=== PATIENT | female | born 1995 | race American Indian/Alaskan Native ===

== ENCOUNTER 2016-05-15 17:01 | Outpatient (CLI) | payer MEDICAID ==
[2016-05-15] MEDS ORDERED: LACTATED RINGERS 500 ML IV ONE (19:00)
[2016-05-15 19:57] LABS: Bilirubin,Urine NEG (Negative); Blood,Urine NEG (Negative); Ketones,Urine NEG (Negative); Leukocyte Esterase,Urine TR (Negative); Mucus,Urine FEW /HPF; Nitrite,Urine NEG (Negative); Protein,Urine <15 mg/dL mg/dL (Negative); Urobilinogen,Urine < 2.0 mg/dL (<2.0)
[2016-05-15 20:06] VITALS: BP 124/75
== END 2016-05-15 20:30 | disposition home or self-care (01) ==
LOC: TRG 17:01
PROVIDERS: ATTEND Obstetrics & Gynecology
DX: O47.1 False labor at or after 37 completed weeks of gestation (principal); Z3A.38 38 weeks gestation of pregnancy
CPT/HCPCS: 81001

== ENCOUNTER 2016-05-23 10:17 | Outpatient (CLI) | payer MEDICAID ==
[2016-05-23 11:20] LABS: Hematocrit 36.9 % (30.3-42.9); Hemoglobin 12.5 gm/dl (10.1-14.3); Mean Corpuscular HGB Conc 34 % (30-34); Mean Corpuscular Hemoglobin 27 pg (28-32); Mean Corpuscular Volume 81 fl (79-97); Platelet Count 237 K/mm3 (140-440); Red Blood Count 4.55 M/mm3 (3.65-5.03); Red Cell Distribution Width 14.6 % (13.2-15.2); White Blood Count 6.9 K/mm3 (4.5-11.0)
[2016-05-23 11:36] LABS: Alanine Aminotransferase 16 units/L (7-56); Lactate Dehydrogenase 267 units/L (91-180); Uric Acid 6.5 mg/dL (3.5-7.6)
[2016-05-23 11:45] LABS: Bacteria,Urine 1+ /HPF (Negative); Bilirubin,Urine NEG (Negative); Blood,Urine NEG (Negative); Ketones,Urine NEG (Negative); Leukocyte Esterase,Urine TR (Negative); Nitrite,Urine NEG (Negative); Protein,Urine <15 mg/dL mg/dL (Negative); Urobilinogen,Urine < 2.0 mg/dL (<2.0)
[2016-05-23 12:02] VITALS: BP 110/62
== END 2016-05-23 12:20 | disposition home or self-care (01) ==
LOC: TRG 10:17
PROVIDERS: ATTEND Obstetrics & Gynecology
DX: O26.893 Other specified pregnancy related conditions, third trimester (principal); R03.0 Elevated blood-pressure reading, without diagnosis of hypertension; Z3A.38 38 weeks gestation of pregnancy
CPT/HCPCS: 36415; 59025; 81001; 82565; 83615; 84450; 84460; 84550; 85027

== ENCOUNTER 2016-05-26 02:02 | Inpatient (IN) | payer MEDICAID ==
[2016-05-26] MEDS ORDERED: NARCAN 0.4 MG/1 ML IV PRN (03:41)
[2016-05-26] MEDS ORDERED: STADOL IV PRN (03:41)
[2016-05-26] MEDS ORDERED: SUBLIMAZE IV PRN (03:41)
[2016-05-26] MEDS ORDERED: BRETHINE SUB-Q PRN (03:41)
[2016-05-26] MEDS ORDERED: BRETHINE IVP PRN (03:41)
[2016-05-26] MEDS ORDERED: ZOFRAN IV PRN ×2 (03:41→09:06)
[2016-05-26] MEDS ORDERED: ePHEDrine SULFATE IV PRN (03:41)
[2016-05-26] MEDS ORDERED: POLYCILLIN/NS 2 GM/100 ML 100 ML IV ONE (03:41)
[2016-05-26] MEDS ORDERED: XYLOCAINE 2% INFILTRATI ONE ×2 (03:41→06:18)
[2016-05-26] MEDS ORDERED: MINERAL OIL PO PRN (03:41)
[2016-05-26] MEDS ORDERED: NUBAIN IV PRN (03:41)
[2016-05-26] MEDS ORDERED: PITOCin/NS 30 UNIT/500ML 500 ML IV SCH (04:00)
[2016-05-26] MEDS ORDERED: LACTATED RINGERS 1,000 ML IV SCH (04:00)
[2016-05-26] MEDS ORDERED: PITOCin/NS 20 UNIT/1000ML DRIP 1,000 ML IV SCH ×2 (04:00→09:06)
[2016-05-26 04:09] LABS: Hematocrit 35.1 % (30.3-42.9); Hemoglobin 12.2 gm/dl (10.1-14.3); Mean Corpuscular HGB Conc 35 % (30-34); Mean Corpuscular Hemoglobin 28 pg (28-32); Mean Corpuscular Volume 80 fl (79-97); Platelet Count 225 K/mm3 (140-440); Red Blood Count 4.38 M/mm3 (3.65-5.03); Red Cell Distribution Width 14.8 % (13.2-15.2); White Blood Count 11.9 K/mm3 (4.5-11.0)
--- NOTE | 2016-05-26 05:36 | History and Physical Report ---
History of Present Illness Date of examination: 05/26/16 Date of admission: 05/26/16 03:34 Chief complaint: contractions History of present illness: Pt is a 20 year old -[place] female primigravida FREDRICK 06/05/16 at 38w4d who presents with regular contractions and advanced cervical dilation after ambulating. She also experienced rupture of membranes while in triage with thick meconium. She denies vaginal bleeding. She has had care at [facility] since 27 wks complicated by late entry to care, chlamydia treated with negative test of cure. Gonorrhea listed as "equivocal" on vaginal cultures. Pt is GBS negative. Past History Past Medical History: no pertinent history Past Surgical History: no surgical history EVENT AV OPERATOR History: chlamydia (treated with negative test of cure ), gonorrhea ( equivocal ) Family/Genetic History: none Social history: no significant social history - Obstetrical History Expected Date of Delivery: 06/05/16 Actual Gestation: 38 Week(s) 4 Day(s) : 1 Medications and Allergies Allergies Allergy/AdvReac Type Severity Reaction Status Date / Time No Known Allergies Allergy Verified 05/23/16 10:25 Home Medications Medication Instructions Recorded Confirmed Last Taken Type No Known Home Medications [No 05/23/16 05/23/16 Unknown History Reported Home Medications] Active Meds: Active Medications Butorphanol Tartrate (Stadol) 2 mg IV Q2H PRN PRN Reason: Pain , Severe (7-10) Last Admin: 05/26/16 04:19 Dose: 2 mg Fentanyl (Sublimaze) 100 mcg IV Q2H PRN PRN Reason: Labor Pain Ampicillin Sodium (Polycillin/Ns 1 Gm/50 Ml) 50 mls @ 100 mls/hr IV Q4HR ROSALIA PRN Reason: Protocol Lactated Ringer's (Lactated Ringers) 1,000 mls @ 125 mls/hr IV DIRECT ROSALIA Oxytocin/Sodium Chloride (Pitocin/Ns 20 Unit/1000ml Drip) 1,000 mls @ 125 mls/ hr IV DIRECT ROSALIA Oxytocin/Sodium Chloride (Pitocin/Ns 30 Unit/500ml) 500 mls @ 4 mls/hr IV TITR ROSALIA PRN Reason: Protocol Mineral Oil (Mineral Oil) 30 ml PO QHS PRN PRN Reason: Constipation Nalbuphine HCl (Nubain) 10 mg IV Q2H PRN PRN Reason: Pain, Moderate (4-6) Naloxone HCl (Narcan 0.4 Mg/1 Ml) 0.1 mg IV Q2MIN PRN PRN Reason: Res Rate </= 8 or 02 SAT < 92% Ondansetron HCl (Zofran) 4 mg IV Q8H PRN PRN Reason: Nausea And Vomiting Review of Systems All systems: negative - Vital Signs Vital signs: Vital Signs Pulse Pulse Ox 104 H 97 05/26/16 02:19 05/26/16 02:19 Temp Pulse Resp BP Pulse Ox 97.4 F L 84 18 138/84 100 05/26/16 04:15 05/26/16 05:15 05/26/16 04:15 05/26/16 05:15 05/26/16 05:13 - Physical Exam Breasts: Positive: deferred Cardiovascular: Regular rate Lungs: Positive: Clear to auscultation Abdomen: Positive: soft (gravid, obese ) Genitourinary (Female): Positive: normal external genitalia Uterus: Positive: enlarged (enlarged ) Extremities: Positive: edema - Obstetrical FHR: category 2 Uterine Contraction Monitor Mode: External Cervical Dilatation: 10 Cervical Effacement Percentage: 100 (meconium ) station: +1 Uterine Contraction Pattern: Regular (q 4-5 minutes) Uterine Tone Measurement Phase: Resting Uterine Contraction Intensity: Strong/Firm Results Result Diagrams: 05/26/16 03:50 Abnormal lab results 05/26/16 Range/Units 03:50 WBC 11.9 H (4.5-11.0) K/mm3 MCHC 35 H (30-34) % All other labs normal. Assessment and Plan A: IUP at 38w4d Second Stage labor SROM- meconium GBS negative P: Admit to labor and delivery. Routine intrapartum care. Closely monitor maternal and status.
[2016-05-26] MEDS ORDERED: METHERGINE IM ONE ×2 (06:09→06:50)
--- NOTE | 2016-05-26 06:50 | Procedure Note ---
OB Delivery Note - Delivery Date of Delivery: 05/26/16 Surgeon: TIM FREGOSO Estimated blood loss: other (600 mL) - Vaginal Delivery presentation: vertex Delivery position: OA Intrapartum events: meconium, decreased FHT variability, mult.variable deceleratio, hemorrhage Delivery induction: none Delivery augmentation: pitocin Delivery monitor: external FHT, external uterine Route of delivery: Delivery placenta: spontaneous Delivery cord: nuchal cord, 3 umbilical vessels Episiotomy: none Delivery laceration: 1st degree (perineal ), other (left labial laceration ) Delivery repair: vicryl Anesthesia: local, intravenous Delivery comments: Pt progressed to complete/complete/+2 and pushed to deliver a viable male via over intact eperineum under IV anesthesia. Head delivered in SHERYL presentation. Loose nuchal cord x 1 was reduced, quickly followed by shoulders and body. Cord immediately clamped and cut and handed to NICU staff in attendance for meconium. Cord blood collected. Placenta delivered spontaneously (3VC, intact). Uterus noted to be boggy and IV not flushing well. Pitocin 10 mU IM and Methergine 0.2 mg IM administered along with bimanual massage to improve uterine tone. Vagina and perinuem explored. Left labial laceration and first degree perineal laceration repaired with 3-0 Vicryl in a running fashion. EBL 600 mL. - A at 1 minute: 8 at 5 minutes: 9 Infant Gender: Male (3583g (7lb 14 oz))
[2016-05-26] MEDS ORDERED: POLYCILLIN/NS 1 GM/50 ML 50 ML IV SCH (07:43)
[2016-05-26] MEDS ORDERED: DERMOPLAST TP PRN (09:06)
[2016-05-26] MEDS ORDERED: BENADRYL PO PRN (09:06)
[2016-05-26] MEDS ORDERED: NORCO 5/325 PO PRN (09:06)
[2016-05-26] MEDS ORDERED: TYLENOL PO PRN (09:06)
[2016-05-26] MEDS ORDERED: SODIUM CHLORIDE FLUSH SYRINGE 10 ML IV NR (09:06)
[2016-05-26] MEDS ORDERED: PHENERGAN PO PRN (09:06)
[2016-05-26] MEDS ORDERED: PHENERGAN PR PRN (09:06)
[2016-05-26] MEDS ORDERED: TUCKS PAD TP PRN (09:06)
[2016-05-26] MEDS ORDERED: LANSINOH TP PRN (09:06)
[2016-05-26] MEDS ORDERED: MOTRIN PO SCH (10:00)
[2016-05-26] MEDS ORDERED: DULCOLAX PR PRN (10:00)
[2016-05-26] MEDS: PRENATAL VITAMIN PO SCH (10:30)
[2016-05-26] MEDS: FEOSOL PO SCH (10:30)
[2016-05-26] MEDS: MOTRIN PO PRN (15:40)
[2016-05-26 20:37] LABS: Hematocrit 24.2 % (30.3-42.9); Hemoglobin 8.3 gm/dl (10.1-14.3)
[2016-05-26] MEDS ORDERED: MILK OF MAGNESIA PO PRN (22:00)
[2016-05-27] MEDS: MOTRIN PO PRN ×2 (00:17→05:59)
[2016-05-27] MEDS ORDERED: BOOSTRIX IM ONE (06:51)
[2016-05-27] MEDS ORDERED: M-M-R II VACCINE SUB-Q ONE (06:51)
--- NOTE | 2016-05-27 07:46 | Progress Note ---
Assessment and Plan A/P PPD#1 s/p with PPH 600ml symptomatic acute anemia c/o lightheadenesss and dizzy while walking and standing offerred blood transfusion discussed r/b/a of blood transfusion and desires will give 2 U red blood cells pain controlled with meds tolerating diet O+ no rhogam indicated 12-8 hemoglobin continue PP care undecided control Subjective - Subjective Date of service: 05/27/16 Principal diagnosis: PPD#1 pph Patient reports: appetite normal, voiding normally, dizzy ambulation, pain well controlled, flatus [place]: doing well, nursing well, bottle feeding Objective - Vital Signs Latest vital signs: Vital Signs Temp Pulse Pulse Resp BP BP Pulse Ox 05/27/16 05:59 18 05/27/16 00:17 18 05/26/16 23:00 98.3 F 105 H 20 120/74 05/26/16 15:47 98.5 F 94 H 20 124/56 05/26/16 11:54 98.4 F 84 18 124/64 05/26/16 08:35 97.9 F 102 H 16 124/73 05/26/16 08:04 97 H 100 05/26/16 07:59 87 100 05/26/16 07:54 97 H 126/60 100 05/26/16 07:49 93 H 100 05/26/16 07:44 98 H 100 Intake and Output 05/26/16 05/27/16 05/27/16 22:59 06:59 14:59 Intake Total 520 Balance 520 Intake: IV 160 PITOCin/NS 20 UNIT/1000ML 160 DRIP 1,000 ML @ 125 mls/ hr IV DIRECT ROSALIA Rx#: [id number] Intake, Free Water 360 Other: Voiding Method Toilet # Voids Void 1 - Exam Breasts: Present: normal Cardiovascular: Present: Other (tachy) Abdomen: Present: normal appearance, soft, normal bowel sounds. Absent: distention, tenderness Uterus: Present: normal, firm, fundal height below umbilicus (4cm ). Absent: bogginess, tenderness Extremities: Present: normal Deep Tendon Reflex Grade: Normal +2 - Labs Labs: Abnormal lab results 05/26/16 Range/Units 20:20 Hgb 8.3 L D (10.1-14.3) gm/dl Hct 24.2 L D (30.3-42.9) %
[2016-05-27] MEDS ORDERED: NACL 0.9% 500 ML 500 ML IV NR (07:47)
[2016-05-27] MEDS: PRENATAL VITAMIN PO SCH (09:59)
[2016-05-27] MEDS: FEOSOL PO SCH ×2 (09:59→22:09)
--- NOTE | 2016-05-27 12:43 | Admit Criteria Form ---
Admission Criteria Documentation: OBSTETRIC AND GYNECOLOGIC DISEASE GRG Clinical Indications for Admission to Inpatient Care (Place 'X' for any and all applicable criteria): Hospital admission is needed for appropriate care of the patient because of ANY ONE of the following (1)(2)(3): [ ]I. Hemodynamic instability, as indicated by ALL of the following (1)(2)(3)( 4)(5): [ ]a) Vital signs or other findings not as expected for chronic patient condition or baseline [ ]b) Instability indicated by ANY ONE of the following: [ ]i) Hypotension [ ]ii) Symptomatic tachycardia unresponsive to treatment (eg, analgesia, fluids, sedation as indicated) [ ]iii) Inadequate perfusion indicated by ANY ONE of the following: [ ]A. Lactic acidosis (greater than 2 mmol/ L) [ ]B. New abnormal capillary refill ( greater than 3 seconds) [ ]C. Reduced urine output [ ]D. New altered mental status [ ]iv) Orthostatic vital sign changes unresponsive to treatment (eg, fluids) [ ]v) Multiple IV fluid boluses required to maintain adequate blood pressure or perfusion [ ]vi) IV inotropic or vasopressor medication required to maintain adequate blood pressure or perfusion [ ]II. Obstetric infection requiring hospitalization indicated by ANY ONE of the following(13)(14): [ ]a) Chorioamnionitis [ ]b) Endometritis (except mild endometritis) [ ]c) Pelvic abscess [ ]d) Peritonitis [ ]e) Septic pelvic thrombophlebitis [ ]III. Amniotic fluid or pulmonary embolism(4)(5)(6) [ ]IV. Suspected peritonitis or ectopic requiring monitoring beyond scope of 24 hours or observation care(7)(8) [ ]V. compromise requiring hospitalization indicated by ALL of the following(9)(10): [ ]a) compromise indicated by ANY ONE of the following(11): [ ]i) Abnormal heart rate monitoring [ ]ii) Abnormal contraction stress test [ ]iii) Abnormal biophysical profile [ ]iv) Abnormal Doppler flow in vessels (ie, Doppler velocimetry) (12) [ ]b) Persistence of compromise indicators during evaluation and observation monitoring [ ]. Ovarian hyperstimulation syndrome requiring hospitalization[A] indicated by ALL of the following(15): [ ]a) Recent ovarian stimulation with gonadotropins, or evidence on ultrasound of spontaneous emergence of large number of ovarian follicles [ ]b) Evidence of severe ovarian hyperstimulation syndrome indicated by ANY ONE of the following: [ ]i) Abdominal pain unresponsive to oral therapy [ ]ii) Acute respiratory distress syndrome [ ]iii) Electrolyte imbalance ( eg, hyponatremia, hyperkalemia) [ ]iv) Elevated liver enzymes [ ]v) Evidence of thromboembolism [ ]vi) Hemoconcentration (hematocrit greater than 45 % (0.45)) [ ]vii) Inability to maintain oral intake adequate to prevent hemoconcentration [ ]viii) Marked hypotension from baseline (eg, SBP 20 mmHg below patients usual pressure) [ ]ix) Oliguria or anuria [ ]x) Ovarian torsion [ ]xi) Pleural or pericardial effusion on x-ray or echocardiogram [ ]xii) Rapid increase in serum creatinine to greater than 1.2 mg/dL (106 micromoles/L) or creatinine clearance less than 50 mL/min/1.73m2 (0.84 mL/ sec/1.73m2) [ ]xiii) Ruptured ovarian cyst with hemorrhage [ ]xiv) Severe abdominal pain or peritoneal signs [ ]xv) Tense ascites that cannot be managed with paracentesis in outpatient setting [ ]VII.Pelvic infection requiring hospitalization indicated by ANY ONE of the following (16): [ ]a) Outpatient treatment has failed or is not appropriate (eg, inpatient monitoring required) [ ]b) Pelvic abscess [ ]c) Surgical emergency cannot be excluded (eg, rigid abdomen) [ ]d) Vomiting precluding outpatient and observation care management VIII. loss complications requiring inpatient medical treatment indicated by ANY ONE of the following (4)(7)(9): [ ]a) Fever [ ]b) Peritonitis [ ]c) Sepsis [ ]d) Severe abdominal pain [ ]IX. or patient requiring monitoring for severe heart failure, pulmonary disease, or other comorbid condition (eg, peripartum cardiomyopathy) (4)(17) [ ]X. patient with rupture of membranes requiring hospitalization indicated by ANY ONE of the following: [ ]a) Chorioamnionitis, cloudy amniotic fluid, or other evidence of infection [ ]b) compromise or other need for monitoring (11) [ ]c) Gestation longer than 23 weeks and ANY ONE of the following: [ ]i) Abnormal (noncephalic) presentation [ ]ii) Inadequate home environment (eg, home too far from hospital, unable to rapidly return to hospital) [ ]d) Temperature greater than 100.4 degrees F (38 degrees C)( oral) [ ]e) Threatened labor requiring monitoring beyond scope (eg, over 24 hours) of observation Care [ ] XI. complications, including severe lacerations, infections, or retained placenta (19) [ ] XII.Uterine bleeding with high-risk features indicated by ANY ONE of the following (4): [ ]a) Active major hemorrhage (eg, hemorrhage) [ ]b) Coagulopathy with active bleeding [ ]c) Gestational trophoblastic disease (eg, molar ) (20 ) [ ]d) (longer than 23 weeks) and ANY ONE of the following: [ ]i) Pain [ ]ii) Placental abruption, known or suspected [ ]iii) Placenta accrete, known or suspected(21) [ ]iv) Placenta previa, known or suspected [ ]v) Vasa previa [ ]e) Severe anemia [ X]XIII. Obstetric or Gynecologic Disease, condition or symptom for which ANY ONE of the following: [X ]a) Emergency and observation care have failed or are not considered appropriate ( Also use General Criteria: Observation Care Criteria as appropriate) [ ]b) Presence of a General Admission Criteria or Pediatric General Admission Criteria The original [facility] [employer] content created by [facility] has been revised. The portions of the content which have been revised are identified through the use of italic text or in bold, and [facility] has neither reviewed nor approved the modified material.All other unmodified content is copyright [facility]. Please see references footnoted in the original [facility] edition 2016 Admission Criteria Met: Yes
[2016-05-27 18:49] LABS: Hematocrit 31.8 % (30.3-42.9); Hemoglobin 10.8 gm/dl (10.1-14.3)
[2016-05-28] MEDS: MOTRIN PO PRN (00:07)
--- NOTE | 2016-05-28 08:33 | Progress Note ---
Assessment and Plan - Patient Problems (1) Active labor at term Current Visit: Yes Status: Acute Plan to address problem: patient doing well Subjective - Subjective Date of service: 05/28/16 Interval history: Patient without complaints. Reports decreased lochia. Pain well controlled. Patient reports: appetite normal, voiding normally, pain well controlled : doing well Objective - Vital Signs Latest vital signs: Vital Signs Temp Pulse Pulse Resp BP BP 05/28/16 00:07 20 05/27/16 23:45 98.2 F 88 20 122/79 05/27/16 16:30 98 F 82 20 120/74 05/27/16 14:15 98.6 F 88 20 127/71 05/27/16 13:53 98.4 F 95 H 20 126/74 05/27/16 13:23 98.3 F 95 H 20 140/89 05/27/16 12:53 98.2 F 96 H 18 134/83 05/27/16 12:23 98.3 F 105 H 20 135/85 05/27/16 12:08 97.4 F L 89 20 142/80 05/27/16 11:28 98.4 F 90 20 140/78 05/27/16 11:04 98.7 F 93 H 20 130/81 05/27/16 10:34 98.7 F 85 20 137/75 05/27/16 10:04 98.1 F 93 H 18 136/79 05/27/16 09:49 98.4 F 88 20 137/77 Intake and Output 05/27/16 05/28/16 05/28/16 22:59 06:59 14:59 Intake Total 720 240 Balance 720 240 Intake: Oral 720 240 Other: Total, Intake Amount 240 240 Voiding Method Toilet # Voids Void 1 1 - Exam Abdomen: Present: normal appearance, soft Uterus: Present: normal, firm - Labs Labs: Abnormal lab results 05/26/16 Range/Units 03:50 Crossmatch See Detail
--- NOTE | 2016-05-28 08:35 | Discharge Summary ---
Providers - Providers Date of Admission: 05/26/16 03:34 Date of discharge: 05/28/16 Attending physician: TIM FREGOSO 05/26/16 09:06 Consult to Dimensional Engineer [CONS] Routine Reason For Exam: assistance with , SNS Primary care physician: TIM FREGOSO Hospitalization Reason for admission: active labor Delivery: complications: transfusion, other ( hemorrhage) Discharge diagnosis: IUP at term delivered Hospital course: Patient admitted in active labor. Patient experienced a hemorrhage. She became symptomatic and received 2 units prbcs. Condition at discharge: Good Disposition: DISCHARGED TO HOME OR SELFCARE - Discharge Diagnoses (1) Active labor at term Status: Acute Plan - Discharge Medications Prescriptions: Ferrous Sulfate [Feosol 325 MG tab] 325 mg PO BID #60 tablet HYDROcodone/APAP 5-325 [[place] 5/325] 1 each PO Q6HR PRN #30 tablet PRN Reason: Pain Ibuprofen [Motrin 800 MG tab] 800 mg PO Q8HR PRN #30 tablet PRN Reason: Pain Ibuprofen Oral Liqd [Motrin Oral Liq 100 mg/5 ml] 800 mg PO TID PRN #1 bottle PRN Reason: Pain Vit-Fe Fumar-FA [ Vitamin] 1 tab PO QDAY #30 tablet - Provider Discharge Summary Activity: no sex for 6 weeks, no heavy lifting 4 weeks, no strenuous exercise Diet: routine Instructions: routine Additional instructions: [] Smoking cessation referral if applicable(refer to patient education folder for contact #) [] Refer to [facility]'s [facility] Booklet Call your doctor immediately for: * Fever > 100.5 * Heavy vaginal bleeding ( >1 pad per hour) * Severe persistent headache * Shortness of breath * Reddened, hot, painful area to leg or breast * Drainage or odor from incision. * Keep incision clean and dry at all times and follow doctor's instructions regarding bathing/showering 4 weeks
[2016-05-28] MEDS: PRENATAL VITAMIN PO SCH (10:50)
[2016-05-28] MEDS: FEOSOL PO SCH (10:50)
[2016-05-28 17:25] VITALS: BP 148/88
== END 2016-05-28 15:30 | disposition home or self-care (01) | DRG 774 ==
LOC: TRG 02:02 → LD 03:34 → TRG 03:34 → LD 03:39 → OB 08:37
PROVIDERS: ADMIT Obstetrics & Gynecology; ATTEND Obstetrics & Gynecology
PROC: 0HQ9XZZ Repair Perineum Skin, External Approach (ICD-10-PCS; principal; 2016-05-26)
PROC: 10E0XZZ Delivery of Products of Conception, External Approach (ICD-10-PCS; 2016-05-26)
PROC: 30233N1 Transfusion of Nonautologous Red Blood Cells into Peripheral Vein, Percutaneous Approach (ICD-10-PCS; 2016-05-26)
DX: O77.0 Labor and delivery complicated by meconium in amniotic fluid (principal); O72.1 Other immediate postpartum hemorrhage; O70.0 First degree perineal laceration during delivery; O69.81X0 Labor and delivery complicated by cord around neck, without compression, not applicable or unspecified; Z37.0 Single live birth; Z3A.38 38 weeks gestation of pregnancy
CPT/HCPCS: 36415; 85014; 85018; 85027; 86850; 86900; 86901; 86920; 99211; A6250; G0463; J0290; J0595; J2210; J2300; J2590; J7040; J7120; P9016